=== PATIENT | female | born 1950 | race Caucasian/White ===

== ENCOUNTER → 2023-02-11 | Day surgery (SDC) | payer MEDICARE ==
[~2023-02-11] MED LIST: Midazolam 1 MG/ML 2 ML SDV ONE; Propofol 200 MG/20 ML SDV ONE; fentaNYL 50 MCG/ML SDV ONE
[2023-02-11] MEDS: Lactated Ringers 1,000 ML IV SCH (07:13)
== END ==
LOC: JP.SDS 06:26
PROVIDERS: ATTEND Student in an Organized Health Care Education/Training Program
DX: Z12.11 Encounter for screening for malignant neoplasm of colon (principal); K57.30 Diverticulosis of large intestine without perforation or abscess without bleeding; J45.909 Unspecified asthma, uncomplicated; E78.00 Pure hypercholesterolemia, unspecified; Z86.010 Personal history of colon polyps; Z88.0 Allergy status to penicillin; Z88.8 Allergy status to other drugs, medicaments and biological substances; Z91.012 Allergy to eggs; Z91.010 Allergy to peanuts
CPT/HCPCS: G0121; J2250; J2704; J3010; J7120